=== PATIENT | male | born 1975 | race Caucasian/White ===

== ENCOUNTER 2018-04-21 17:07 | Emergency (ER) | payer SELFPAY ==
[2018-04-21] MEDS ORDERED: XYLOCAINE 1%/Epi 1:100000 MDV 20 ML ONE (17:47)
[2018-04-21] MEDS ORDERED: XYLOCAINE 1%/Epi 1:100000 MDV 20 ML IJ ONE (17:59)
--- NOTE | 2018-04-21 18:05 | ERPHSYRPT ---
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 Triage Nursing Assessment: pt is aox3, pupils perrl, resps easy and non labored , radial pulses strong and equal. 3 lacerations noted to the lower back. the most proximal wound measures 4cm, the middle wound is 3cm in length as well as the most distal wound. moderate amount of bright red blood is draining from the lacerations, sterile 4x4s were applied and reinforced. wounds are well approxmiated. pt skin is pink warm dry, pt afebrile. Physician History: 42-year-old white male arrives with complaint of multiple lacerations to his lumbar region, Patient states he fell on a bottle. Patient is brought by medics he has multiple lacerations 1 has approximately 3 cm the other one is approximately 4 cm the third is approximately 2.5 cm. These are located in the low lumbosacral region. Patient states he has been drinking tonight. He denies any other complaints she has no movement disorder. He has sensation to all extremities. Timing/Duration: today (jjust prior to arrival) Severity: moderate Modifying Factors: Improves With: nothing Associated Symptoms: other (laceration 3 with bleeding lumbosacral area) Allergies/Adverse Reactions: ceftriaxone [From Rocephin] Allergy (Verified 04/21/18 17:28) Hx Tetanus, Diphtheria Vaccination/Date Given: No Hx Influenza Vaccination/Date Given: No Hx Pneumococcal Vaccination/Date Given: No Immunizations Up to Date: Yes - Review of Systems Constitutional: No Fever, No Chills Eyes: No Symptoms Ears, Nose, & Throat: No Symptoms Respiratory: No Cough, No Dyspnea Cardiac: No Chest Pain, No Edema, No Syncope Abdominal/Gastrointestinal: No Abdominal Pain, No Nausea, No Vomiting, No Diarrhea Genitourinary Symptoms: No Dysuria Musculoskeletal: Other (laceration 3 with bleeding lumbosacral area) Skin: Other (laceration x 3 with bleeding lumbosacral area) Neurological: No Dizziness, No Focal Weakness, No Sensory Changes Psychological: No Symptoms Endocrine: No Symptoms All Other Systems: Reviewed and Negative - Past Medical History Pertinent Past Medical History: Yes Cardiac History: Hypertension - Past Surgical History Past Surgical History: Yes Other Surgical History: PUNCTURED LUNG - Social History Smoking Status: Current every day smoker Drug Use: none Patient Lives Alone: No - Nursing Vital Signs Nursing Vital Signs: Initial Vital Signs Temperature 99.2 F 04/21/18 17:09 Pulse Rate 103 H 04/21/18 17:09 Respiratory Rate 20 04/21/18 17:09 Blood Pressure 149/106 04/21/18 17:09 O2 Sat by Pulse Oximetry 98 04/21/18 17:09 Pain Scale Pain Intensity 7 - Physical Exam General Appearance: moderate distress Eye Exam: PERRL/EOMI, eyes nml inspection Ears, Nose, Throat Exam: normal ENT inspection, TMs normal, pharynx normal, moist mucous membranes Neck Exam: normal inspection, non-tender, supple, full range of motion Respiratory Exam: normal breath sounds, lungs clear, No respiratory distress Cardiovascular Exam: regular rate/rhythm, normal heart sounds, normal peripheral pulses Gastrointestinal/Abdomen Exam: soft, normal bowel sounds, No tenderness, No mass Back Exam: other (patient with laceration x 3 lumbosacral area one approximately 2.5 cm, one approximately 4 cm one approximately 3 cm.) Extremity Exam: normal inspection, normal range of motion, pelvis stable Neurologic Exam: alert, oriented x 3, cooperative, 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, normal mood/affect, nml cerebellar function, nml station & gait, sensation nml, No motor deficits Skin Exam: other (laceration lumbosacral area x 3,one approximately 2.5 cm, 1 approximately 4 cm, one approximately 3 cm) SpO2 Interpretation: normal (98%) SpO2: 98 Oxygen Delivery: Room Air - Radiology Exams L-Spine X-ray Interpretation: Interpreted by me (no fractures, subluxation or foreign bodies) Ordered Tests: Active Orders 24 hr Category Date Time Status Prepare for Sutures STAT Care 04/21/18 17:59 Active Sutures STAT Care 04/21/18 17:59 Active Wound Care STAT Care 04/21/18 17:59 Active LUMBAR LIMITED (2 OR 3 VIEWS) Stat Exams 04/21/18 17:58 Ordered Medication Summary Generic Name Dose Route Start Last Admin Trade Name Freq PRN Reason Stop Dose Admin Hydrocodone Bitart/Acetaminophen 2 tab 04/21/18 19:14 [place] 5/325 Mg PO 04/21/18 19:15 STAT ONE Discontinued Medications Generic Name Dose Route Start Last Admin Trade Name Anthonyq PRN Reason Stop Dose Admin Lidocaine/Epinephrine Confirm 04/21/18 17:47 Xylocaine 1%/Epi 1:[id number] Mdv 20 Ml Administered 04/21/18 17:48 Dose 5 ml .ROUTE .STK-MED ONE Lidocaine/Epinephrine 10 ml 04/21/18 17:59 Xylocaine 1%/Epi 1:[id number] Mdv 20 Ml IJ 04/21/18 18:00 STAT ONE - Progress Progress: improved Progress Note: 04/21/18 19:10 Laceration repair 3 cm, 4 cm, 2.5 cm lumbosacral area. Laceration sterilely prepped and draped. Anesthetized with 1% lidocaine with epinephrine. 21 sutures are placed interrupted using 40 and 5-0 Ethilon suture. Sterile dressing is applied. X-ray was obtained of the lumbar sacral area to rule out foreign bodies. There were no foreign bodies or fractures noted. Patient will be given [place] for pain. - Departure Time of Disposition: 19:11 Departure Disposition: Home Clinical Impression: laceration lumbosacral area Condition: Fair Critical Care Time: No Additional Instructions: Return home, Keep area clean and dry, Bacitracin to laceration until healed, Sutures out in 7-10 days, Follow-up with your family doctor if signs of infection or problems, Return for acute distress or for severe symptoms, [place] as directed for pain, Prescriptions: Hydrocodone/Acetaminophen [[place] 5-325 Tablet] 1 tab PO Q4-6HPRN PRN #12 tablet MDD 6 tablets PRN Reason: Pain
[2018-04-21] MEDS ORDERED: NORCO 5/325 MG PO ONE ×2 (19:14)
[2018-04-21] MEDS ORDERED: Adacel Vial IM ONE ×2 (19:18→19:23)
[2018-04-21] MEDS ORDERED: NORCO 5/325 MG ONE (19:22)
[2018-04-21 19:43] VITALS: BP 144/104; PULSE 116; O2SAT 97
--- NOTE | 2018-04-22 08:39 | XRAY ---
Indication: Pain and laceration following fall. Comparison: None 3 views of the lumbar spine demonstrates 5 lumbar vertebral segments in normal alignment with T11-T12 and L2-L3 degenerative endplate spurring. Mild scattered vascular calcifications. No other bony, articular, or soft tissue abnormalities.
== END 2018-04-21 19:40 | disposition home or self-care (01) ==
LOC: ED 17:07
PROC: 0HQ6XZZ Repair Back Skin, External Approach (ICD-10-PCS; principal; 2018-04-21)
DX: S31.010A Laceration without foreign body of lower back and pelvis without penetration into retroperitoneum, initial encounter (principal); W01.110A Fall on same level from slipping, tripping and stumbling with subsequent striking against sharp glass, initial encounter
CPT/HCPCS: 12004; 72100; 90471; 90715; 96372; 99284; A9270-GY

== ENCOUNTER 2018-06-02 10:18 | Emergency (ER) | payer OTHER ==
[2018-06-02] MEDS ORDERED: Norflex 60 MG/2 ML IM ONE (10:42)
[2018-06-02] MEDS ORDERED: TORAdol 30 mg Injection IM ONE (10:42)
[2018-06-02] MEDS ORDERED: Norflex 60 MG/2 ML ONE (10:45)
[2018-06-02] MEDS ORDERED: TORAdol 30 mg Injection ONE (10:45)
--- NOTE | 2018-06-02 10:46 | ERPHSYRPT ---
- History of Present Illness Time Seen by Provider: 06/02/18 10:39 Source: patient Exam Limitations: no limitations Patient Subjective Stated Complaint: slipped off porch 2 days ago. states lamnded on his tailbone.. pain since Triage Nursing Assessment: ambulate to room with some difficulty with walking. KENDALL denies numbness. + pulses x 4. states slipped off porch after turning wrong. no LOC denies other injuries Physician History: 42-year-old white male arrives with complaint of pain on his low coccyx area symptoms for 2 days. Patient states he landed on his buttocks after falling off a porch. Denies other complaints. Past medical history includes high blood pressure and punctured lung. Patient had been seen here on April 22, 2018 secondary to a back injury x-rays at that time lumbar spine T11-12 and L2-L3 endplate spurring otherwise negative. Patient without any neurologic problems. Timing/Duration: day(s) (2 days ago) Severity: moderate Modifying Factors: Improves With: nothing Associated Symptoms: No nausea, No vomiting, No abdominal pain, No shortness of breath, No heartburn, No diaphoresis, No cough, No chills, No chest pain, No fever, No headaches, No loss of appetite, No malaise, No rash, No syncope, No seizure, No weakness Allergies/Adverse Reactions: ceftriaxone [From Rocephin] Allergy (Verified 06/02/18 10:39) Hx Tetanus, Diphtheria Vaccination/Date Given: No Hx Influenza Vaccination/Date Given: No Hx Pneumococcal Vaccination/Date Given: No Immunizations Up to Date: Yes - Review of Systems Constitutional: No Fever, No Chills Eyes: No Symptoms Ears, Nose, & Throat: No Symptoms Respiratory: No Cough, No Dyspnea Cardiac: No Chest Pain, No Edema, No Syncope Abdominal/Gastrointestinal: No Abdominal Pain, No Nausea, No Vomiting, No Diarrhea Genitourinary Symptoms: No Dysuria Musculoskeletal: Back Pain Skin: No Rash Neurological: No Dizziness, No Focal Weakness, No Sensory Changes Psychological: No Symptoms Endocrine: No Symptoms All Other Systems: Reviewed and Negative - Past Medical History Pertinent Past Medical History: Yes Cardiac History: Hypertension - Past Surgical History Past Surgical History: Yes Other Surgical History: PUNCTURED LUNG - Social History Smoking Status: Never smoker Exposure to second hand smoke: No Drug Use: none Patient Lives Alone: No - Nursing Vital Signs Nursing Vital Signs: Initial Vital Signs Temperature 98.6 F 06/02/18 10:25 Pulse Rate 78 06/02/18 10:25 Respiratory Rate 18 06/02/18 10:25 Blood Pressure 169/119 06/02/18 10:25 O2 Sat by Pulse Oximetry 97 06/02/18 10:25 Pain Scale Pain Intensity [] 8 Pain Intensity 7 - Physical Exam General Appearance: no apparent distress, alert Eye Exam: PERRL/EOMI, eyes nml inspection Ears, Nose, Throat Exam: normal ENT inspection, TMs normal, pharynx normal, moist mucous membranes Neck Exam: normal inspection, non-tender, supple, full range of motion Respiratory Exam: normal breath sounds, lungs clear, No respiratory distress Cardiovascular Exam: regular rate/rhythm, normal heart sounds, normal peripheral pulses Gastrointestinal/Abdomen Exam: soft, normal bowel sounds, No tenderness, No mass Back Exam: other (mild tenderness with palpation coccygeal area.) Extremity Exam: normal inspection, normal range of motion, pelvis stable Neurologic Exam: alert, oriented x 3, cooperative, 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, normal mood/affect, nml cerebellar function, nml station & gait, sensation nml, No motor deficits Skin Exam: normal color, warm, dry, No rash SpO2 Interpretation: normal (97%) SpO2: 97 Oxygen Delivery: Room Air - Course Nursing assessment & vital signs reviewed: Yes - Radiology Exams L-Spine X-ray Interpretation: Interpreted by me (no acute fractures or subluxation) Ordered Tests: Active Orders 24 hr Category Date Time Status LUMBAR LIMITED (2 OR 3 VIEWS) Stat Exams 06/02/18 11:17 Taken Medication Summary Discontinued Medications Generic Name Dose Route Start Last Admin Trade Name Rosa PRN Reason Stop Dose Admin Hydrocodone Bitart/Acetaminophen 2 tab 06/02/18 11:09 06/02/18 11:15 [place] 5/325 Mg PO 06/02/18 11:10 2 tab STAT ONE Administration Hydrocodone Bitart/Acetaminophen Confirm 06/02/18 11:14 [place] 5/325 Mg Administered 06/02/18 11:15 Dose 2 tab .ROUTE .STK-MED ONE Hydrocodone Bitart/Acetaminophen 2 tab 06/02/18 11:49 [place] 5/325 Mg PO 06/02/18 11:50 SENT HOME W/ PATIENT ONE Ketorolac Tromethamine 60 mg 06/02/18 10:42 06/02/18 10:50 Toradol 30 Mg Injection IM 06/02/18 10:43 60 mg STAT ONE Administration Ketorolac Tromethamine Confirm 06/02/18 10:45 Toradol 30 Mg Injection Administered 06/02/18 10:46 Dose 60 mg .ROUTE .STK-MED ONE Orphenadrine Citrate 60 mg 06/02/18 10:42 06/02/18 10:50 Norflex 60 Mg/2 Ml IM 06/02/18 10:43 60 mg STAT ONE Administration Orphenadrine Citrate Confirm 06/02/18 10:45 Norflex 60 Mg/2 Ml Administered 06/02/18 10:46 Dose 60 mg .ROUTE .STK-MED ONE - Progress Progress: improved Progress Note: 06/02/18 11:10 This is a 42-year-old white male who arrives with complaint of pain in the coccygeal region after falling 2 days ago he has pain with palpation of the coccygeal region ( mild) Otherwise essentially normal exam. Patient's blood pressure is elevated. Patient apparently has a history of high blood pressure he has has not pursued this with his family doctor. Patient appears to be stable. Patient will be given norco. for pain he has already been given an injection of Toradol and Norflex. He will be advised to follow-up with his family doctor concerning treatment of his blood pressure. Will place patient on NAPROSYN AND FLEXERIL> 06/02/18 11:46 Patient was given [place] 2 tablets orally He is somewhat improved but not pain free. X-ray of the lumbar series my read no acute fractures or subluxation. Will I hate him send patient home with Naprosyn and Flexeril Will give patient a list of local physicians for follow-up. . - Departure Time of Disposition: 11:12 Departure Disposition: Home Clinical Impression: Back pain Qualifiers: Back pain location: low back pain Chronicity: acute Back pain laterality: midline Sciatica presence: without sciatica Qualified Code(s): M54.5 - Low back pain Condition: Fair Critical Care Time: No Referrals: DOCTOR,NO FAMILY [Primary Care Provider] - Instructions: Low Back Pain (DC) Additional Instructions: Return home. Naprosyn 500 mg orally twice a day #20 Flexeril as prescribed. your blood pressure is elevated today you needto follow up with your family doctor ( list) for evaluation and chronic control of this. Follow up with your family doctor( list) Return for acute distress or for severe symptoms. Prescriptions: Cyclobenzaprine HCl [Flexeril] 10 mg PO TID #15 tablet Naproxen 500 mg [Naprosyn 500 MG] 500 mg PO BID #20 tablet
[2018-06-02] MEDS ORDERED: NORCO 5/325 MG PO ONE ×2 (11:09→11:49)
[2018-06-02] MEDS ORDERED: NORCO 5/325 MG ONE ×2 (11:14→11:51)
[2018-06-02 12:02] VITALS: BP 160/84; PULSE 68; O2SAT 98
--- NOTE | 2018-06-02 22:30 | XRAY ---
Indication: Low back pain following fall. Comparison: April 21, 2018. 3 views of the lumbar spine unchanged again demonstrating normal alignment with mild multilevel anterior endplate spurring and minimal vascular calcifications. No new/acute findings.
== END 2018-06-02 12:03 | disposition home or self-care (01) ==
LOC: ED 10:18
DX: M54.5 Low back pain (principal); W17.89XA Other fall from one level to another, initial encounter; Y92.008 Other place in unspecified non-institutional (private) residence as the place of occurrence of the external cause
CPT/HCPCS: 72100; 96372; 99284; J1885; J2360; A9270-GY